=== PATIENT | male | born 1950 | race Caucasian/White ===

== ENCOUNTER → 2016-06-13 | Outpatient (CLI) | payer OTHER ==
[~2016-06-13] MED LIST: ATOR10TA88 PO; LANS30CA12; LIPITOR; LISI-725 PO; OMEP40CA; OXYC-57 PO; PRLSR20 PO; TAMS0.4C38 PO
[2016-06-13 13:19] LABS: ALT/SGPT 35 U/L (12-78); AST/SGOT 25 U/L (15-37); BLOOD UREA NITROGEN 15 mg/dl (7-18); BUN/CREATININE RATIO 15.2 (10-20); CALCIUM 9.4 mg/dl (8.5-10.1); CARBON DIOXIDE 30 mmol/L (21-32); CHLORIDE 100 mmol/L (98-107); CHOLESTEROL 155 mg/dl (0-200); GLUCOSE 96 mg/dl (70-99); SODIUM 137 mmol/L (136-145); TRIGLYCERIDES 118 mg/dl (0-150); VERY LOW DENSITY LIPOPROT CALC 24 mg/dl
[2016-06-13 13:29] LABS: ALB/GLOB RATIO 1.1 (0.9-2); ALKALINE PHOSPHATASE 74 U/L (45-117); HDL CHOLESTEROL 52 mg/dl; LDL CHOLESTEROL CALCULATED 79 mg/dl
== END | disposition home or self-care (01) ==
LOC: C.LABPVFM 07:44
PROVIDERS: ATTEND Family Medicine
DX: E78.4 Other hyperlipidemia (principal); K21.9 Gastro-esophageal reflux disease without esophagitis; I10 Essential (primary) hypertension; Z13.29 Encounter for screening for other suspected endocrine disorder

== ENCOUNTER → 2016-12-13 | Outpatient (CLI) | payer OTHER ==
--- NOTE | 2016-12-13 09:59 | DIAGNOSTIC IMAGING REPORT ---
KUB CLINICAL HISTORY: HYPERTENSION/NAUSEA/ COMPARISON STUDY: No previous studies for comparison. FINDINGS: There is no pathologic bowel dilatation. Degenerative changes are present within the spine. There are no calcifications suspicious for renal calculi. There are several nonspecific pelvic basin calcifications. If there is clinical concern over the presence of a distal ureteral calculus, a CT scan could be obtained in follow-up. IMPRESSION: 1. No renal calculi identified 2. Nonspecific pelvic basin calcifications. Electronically signed by: Santana Durand M.D. 12/13/2016 9:58 AM Dictated Date/Time: 12/13/2016 9:57 AM
[2016-12-13 12:43] LABS: BLOOD UREA NITROGEN 15 mg/dl (7-18); BUN/CREATININE RATIO 11.4 (10-20); CALCIUM 9.8 mg/dl (8.5-10.1); CARBON DIOXIDE 28 mmol/L (21-32); CHLORIDE 100 mmol/L (98-107); GLUCOSE 122 mg/dl (70-99); SODIUM 135 mmol/L (136-145)
[2016-12-13 12:47] LABS: CHOLESTEROL/HDL RATIO 4.2; PROSTATE SPECIFIC ANTIGEN 2.63 ng/ml (0.000-4.000)
== END | disposition home or self-care (01) ==
LOC: C.LABPVFM 09:40
PROVIDERS: ATTEND Nurse Practitioner
DX: I10 Essential (primary) hypertension (principal); R11.0 Nausea; Z12.5 Encounter for screening for malignant neoplasm of prostate; E78.4 Other hyperlipidemia

== ENCOUNTER 2016-12-14 08:43 | Emergency (ER) | payer OTHER ==
[~2016-12-14] VITALS: Ht 177.8 cm; Wt 83.7 kg
[~2016-12-14 08:43] MED LIST changes: -ATOR10TA88 PO; -LISI-725 PO; -OXYC-57 PO; -PRLSR20 PO; -TAMS0.4C38 PO
[2016-12-14 08:47] VITALS: TEMP 36.8; Ht 177.8 cm; Wt 83.7 kg
[2016-12-14] MEDS ORDERED: MoRPHine SULFATE 4 MG/ML 1 ML CARP\\VIAL ONE ×2 (09:12→10:40)
[2016-12-14] MEDS ORDERED: MoRPHine SULFATE 2 MG/ML CARP ONE ×2 (09:12→10:40)
[2016-12-14] MEDS ORDERED: MoRPHine SULFATE 10 MG/ML CARP/VIAL IV PRN (09:15)
[2016-12-14] MEDS ORDERED: SODIUM CHLORIDE 0.9% 1000ML 1,000 ML IV ONE (09:15)
[2016-12-14] MEDS ORDERED: ONDANSETRON INJ 2 MG/ML 2 ML VIAL IV PRN (09:15)
[2016-12-14 09:38] LABS: BASO % 0.1 %; BASO ABS # 0.01 K/uL (0-0.2); COMPLETE YES; HEMATOCRIT 45.6 % (42-52); IG% 0.2 %; LYMPH % 5.4 %; LYMPH ABS # 0.91 K/uL (1.2-3.4); MEAN CELL VOLUME 84.4 fL (80-100); MEAN CORPUSCULAR HEMOGLOBIN 30.4 pg (25-34); MEAN PLATELET VOLUME 10.1 fL (7.4-10.4); MONO % 9.8 %; NEUT % 84.5 %; PLATELET COUNT 263 K/uL (130-400); WHITE BLOOD COUNT 16.99 K/uL (4.8-10.8)
[2016-12-14] MEDS ORDERED: ATOR10TA88 PO (09:40)
[2016-12-14] MEDS ORDERED: PRLSR20 PO (09:40)
[2016-12-14 09:56] LABS: BUN/CREATININE RATIO 10.7 (10-20); CALCIUM 9.9 mg/dl (8.5-10.1); CREATININE 1.4 mg/dl (0.60-1.40); POTASSIUM 3.9 mmol/L (3.5-5.1)
--- NOTE | 2016-12-14 10:02 | EMERGENCY ROOM VISIT NOTE ---
History Report prepared by Marilyn: Abby Nelson Under the Supervision of: Dr. Dakota Emmanuel M.D. First contact with patient: 09:00 Chief Complaint: ABDOMINAL PAIN Stated Complaint: ABD PAIN, HYPERTENSION, NAUSEA History of Present Illness The patient is a 66 year old male who presents to the Emergency Room with complaints of worsening diffuse abdominal pain for the past day. The patient was feeling fine Monday night while watching football. He went to bed and woke up around 1am with abdominal pain. This has been constant and worsening since that time. He is also experiencing nausea and back pain. He rates his pain as a 7/10 in severity. He has had no appetite. He has a history of kidney stones but is unsure if this feels like his previous kidney stones. The patient's last bowel movement was 3 days ago. He used a suppository last night. He was straining this morning to have a bowel movement but was only able to have a very small one. He went to [facility] yesterday and had a negative x-ray. Source of History: patient Onset: yesterday at 1am Position: abdomen Symptom Intensity: 7/10 Timing: constant, worsening Associated Symptoms: + back pain Note: Pt has been constipated. Review of Systems All systems have been listed, reviewed, and are negative other than those previously mentioned. Please see Additional Medical History Sheet. Past Medical & Surgical Medical Problems: (1) Calculus of kidney (2) Diaphragmatic hernia (3) Esophageal reflux (4) Ulcer of esophagus with bleeding Surgical Problems: (1) History of Cameron fundoplication Family History Heart disease Social History Smoking Status: Former Smoker Smokeless Tobacco Use: No Alcohol Use: none Marital Status: Housing Status: lives with significant other Occupation Status: unemployed Current/Historical Medications Scheduled Atorvastatin (Lipitor), 1 TAB PO DAILY Omeprazole (Prilosec), 20 MG PO DAILY Tamsulosin Hcl (Flomax), 0.4 MG PO DAILY Scheduled PRN Oxycodone/Acetaminophen 5MG/325MG (Percocet 5MG/325MG), 1-2 TABLETS PO Q4H PRN for Pain Miscellaneous Medications Lansoprazole (Prevacid) Allergies Coded Allergies: No Known Allergies (Verified , 12/14/16) Physical Exam Vital Signs Date Time Temp Pulse Resp B/P (MAP) Pulse Ox O2 Delivery O2 Flow Rate FiO2 9/20/17 13:55 71 18 165/85 95 Room Air 12/14/16 11:55 74 18 162/90 93 Room Air 12/14/16 08:47 36.8 75 17 207/125 98 Room Air Physical Exam GENERAL: Patient awake, alert, oriented x 3. Patient appears to be in moderate distress. Patient follows commands. Patient appears to mild to moderately dehydrated. Patient does not appear toxic. Patient is well-nourished. SKIN: No erythema, pallor, cyanosis or rash HEENT: Normal head, pupils equal, reactive to light and accommodation. Oral cavity and posterior pharynx appear normal. Mucous membranes are dry. Neck: Without adenopathy, no neck vein distention. LUNGS: Clear to auscultation. No wheezes, no rales, no rhonchi. HEART: No murmurs. No gallops. No rubs ABDOMEN: Minimal bowel sounds, generalized abdominal tenderness. Small sub- umbilical well-healed scar without signs of infection. No masses, no rebound or guarding, no hepatomegaly or splenomegaly. EXTREMITIES: No signs of trauma. No pedal or pretibial edema. No calf or thigh tenderness. NEUROLOGIC: Cranial nerves II-XII within normal limits. No gross motor sensory function deficits. Medical Decision & Procedures ER Provider Diagnostic Interpretation: Radiology results as stated below per my review and radiologist interpretation: ABD/PELVIS IV CONTRAST ONLY CT DOSE: 419.88 mGy.cm HISTORY: Obstruction bowel ob? TECHNIQUE: Multiaxial CT images of the abdomen and pelvis were performed following the use of intravenous contrast. A dose lowering technique was utilized adhering to the principles of ALARA. COMPARISON STUDY: 09/23/2005 FINDINGS: Fixed hernia and diminished in volume from the prior study. Mild bibasilar atelectasis. Liver demonstrates several small hepatic cysts unchanged. Right kidney shows moderate hydronephrosis. Enhancement characteristics are somewhat diminished as compared to the contralateral left kidney. Moderate ureteral distention with moderate periureteral infiltrative change. There is a 5 mm obstructing calculus distal right ureter proximal to the right ureteral vesicle junction. Chronic sigmoid diverticulosis. No evidence for acute diverticulitis. Nonobstructive bowel pattern. Mild reactive irritability of the second third portions of the duodenal sweep most likely secondary to perinephric infiltrative change of the right kidney. IMPRESSION: 1. 5 mm obstructing calculus distal right ureter. 2. Moderate right hydroureteronephrosis with moderate perinephric fat stranding. 3. Mild reactive edematous change of the second/ third portion of duodenal sweep. 4. Chronic sigmoid and to lesser extent ascending colonic diverticulosis. 5. Fixed hiatal hernia. The above report was generated using voice recognition software. It may contain grammatical, syntax or spelling errors. Electronically signed by: Breezy Sharp M.D. 12/14/2016 10:35 AM Dictated Date/Time: 12/14/2016 10:28 AM Laboratory Results 12/14/16 09:15 Red Blood Count 5.40, Mean Corpuscular Volume 84.4, Mean Corpuscular Hemoglobin 30.4, Mean Corpuscular Hemoglobin Concent 36.0, Mean Platelet Volume 10.1, Neutrophils (%) (Auto) 84.5, Lymphocytes (%) (Auto) 5.4, Monocytes (%) (Auto) 9.8, Eosinophils (%) (Auto) 0.0, Basophils (%) (Auto) 0.1, Neutrophils # (Auto) 14.36, Lymphocytes # (Auto) 0.91, Monocytes # (Auto) 1.67, Eosinophils # (Auto) 0.00, Basophils # (Auto) 0.01 12/14/16 09:15 Test 12/14/16 09:15 12/14/16 13:30 White Blood Count 16.99 K/uL (4.8-10.8) Red Blood Count 5.40 M/uL (4.7-6.1) Hemoglobin 16.4 g/dL (14.0-18.0) Hematocrit 45.6 % (42-52) Mean Corpuscular Volume 84.4 fL (80-100) Mean Corpuscular Hemoglobin 30.4 pg (25-34) Mean Corpuscular Hemoglobin Concent 36.0 g/dl (32-36) Platelet Count 263 K/uL (130-400) Mean Platelet Volume 10.1 fL (7.4-10.4) Neutrophils (%) (Auto) 84.5 % Lymphocytes (%) (Auto) 5.4 % Monocytes (%) (Auto) 9.8 % Eosinophils (%) (Auto) 0.0 % Basophils (%) (Auto) 0.1 % Neutrophils # (Auto) 14.36 K/uL (1.4-6.5) Lymphocytes # (Auto) 0.91 K/uL (1.2-3.4) Monocytes # (Auto) 1.67 K/uL (0.11-0.59) Eosinophils # (Auto) 0.00 K/uL (0-0.5) Basophils # (Auto) 0.01 K/uL (0-0.2) RDW Standard Deviation 40.6 fL (36.4-46.3) RDW Coefficient of Variation 13.3 % (11.5-14.5) Immature Granulocyte % (Auto) 0.2 % Immature Granulocyte # (Auto) 0.04 K/uL (0.00-0.02) Anion Gap 8.0 mmol/L (3-11) Est Creatinine Clear Calc Drug Dose 52.1 ml/min Estimated GFR () 59.4 Estimated GFR (Non- 51.3 BUN/Creatinine Ratio 10.7 (10-20) Calcium Level 9.9 mg/dl (8.5-10.1) Total Bilirubin 1.1 mg/dl (0.2-1) Aspartate Amino Transf (AST/SGOT) 26 U/L (15-37) Alanine Aminotransferase (ALT/SGPT) 24 U/L (12-78) Alkaline Phosphatase 82 U/L (45-117) Total Protein 7.9 gm/dl (6.4-8.2) Albumin 3.9 gm/dl (3.4-5.0) Globulin 4.0 gm/dl (2.5-4.0) Albumin/Globulin Ratio 1.0 (0.9-2) Lipase 398 U/L (73-393) Urine Color YELLOW Urine Appearance CLEAR (CLEAR) Urine pH 5.0 (4.5-7.5) Urine Specific [place] > 1.045 (1.000-1.030) Urine Protein NEG (NEG) Urine Glucose (UA) NEG (NEG) Urine Ketones 1+ (NEG) Urine Occult Blood NEG (NEG) Urine Nitrite NEG (NEG) Urine Bilirubin NEG (NEG) Urine Urobilinogen NEG (NEG) Urine Leukocyte Esterase NEG (NEG) Laboratory results as stated above per my review. Medications Administered Medications (Trade) Dose Ordered Sig/Mary Route Start Time Stop Time Status Last Admin Dose Admin Ondansetron HCl (Zofran Inj) 4 mg Q1HWA PRN IV 12/14/16 09:15 01/13/17 09:14 12/14/16 09:24 4 MG Sodium Chloride 1,000 ml @ 1,000 mls/hr Q1H ONCE IV 12/14/16 09:15 12/14/16 10:14 DC 12/14/16 09:25 1,000 MLS/HR Morphine Sulfate (MoRPHine SULFATE INJ) 4 mg STK-MED ONCE .ROUTE 12/14/16 09:12 12/14/16 09:13 DC 12/14/16 09:24 4 MG Morphine Sulfate (MoRPHine SULFATE INJ) 2 mg STK-MED ONCE .ROUTE 12/14/16 09:12 12/14/16 09:13 DC 12/14/16 09:25 2 MG Morphine Sulfate (MoRPHine SULFATE INJ) 4 mg STK-MED ONCE .ROUTE 12/14/16 10:40 12/14/16 10:41 DC 12/14/16 10:44 4 MG Morphine Sulfate (MoRPHine SULFATE INJ) 2 mg STK-MED ONCE .ROUTE 12/14/16 10:40 12/14/16 10:41 DC 12/14/16 10:44 2 MG Al Hydrox/Mg Hydrox/Simethicone (Maalox Max Susp) 30 ml NOW STAT PO 12/14/16 14:09 12/14/16 14:10 DC 12/14/16 14:34 30 ML ECG Indication: abdominal pain Rate (beats per minute): 68 Rhythm: normal sinus Findings: left axis deviation, no ectopy ED Course 0900: Past medical records reviewed. The patient was evaluated in room B10. A complete history and physical examination was performed. 0912: Morphine sulfate 6 mg IV 0915: NSS 1000ml @ 1000 mls/hr IV, Zofran 4 mg IV - PRN 1040: Morphine sulfate 6 mg IV 1152: Upon reevaluation the patient is doing well. His pain is currently a 1/ 10. He will give a urine sample. 1406: I updated the patient. He is doing well but complaining of some indigestion. 1409: Maalox 30 ml PO 1418: I spoke with GEOVANNA Rojas with urology. We discussed the patient' s case. She will follow-up with the patient in the office tomorrow. 1429: I reassessed the patient at this time. He is feeling better and resting comfortably. I discussed the results and treatment plan with the patient. I answered all pertaining questions that he had. He expressed understanding and verbalized agreement. The patient will be discharged home. Medical Decision Differential diagnoses includes bowel obstruction, gastroenteritis, peptic/ gastric ulcer disease, cholelithiasis, cholecystitis, diverticulitis, dehydration. The patient arrives here with abdominal pain similar to what he has experienced in the past with a kidney stone. Multiple labs and imaging were performed. The patient does have a 5 mm distal ureteral stone with hydronephrosis. He also has some edema around the duodenum and a slight elevation of his white count. I believe this is most likely secondary to the inflammation of the kidney. Urinalysis is clear. The patient's pain was controlled with the above medications. The patient felt significantly better prior to discharge. I did discussed care with Holly Marie from urology. The patient will be seen tomorrow. In the meantime he was given a prescription for Flomax and Percocet. The patient was given milk of magnesia here for some indigestion. [place] Drug Monitoring Program Search Results: patient reviewed within database, no issues identified Medication Reconcilliation Current Medication List: was personally reviewed by me Blood Pressure Screening Patient's blood pressure: Elevated blood pressure Blood pressure disposition: Referred to PCP Consults Time Called: 1414 Consulting Physician: GEOVANNA Rojas Returned Call: 1418 I spoke with GEOVANNA Rojas with urology. We discussed the patient's case. She will follow-up with the patient in the office tomorrow. Impression Primary Impression: Renal colic Scribe Attestation The scribe's documentation has been prepared under my direction and personally reviewed by me in its entirety. I confirm that the note above accurately reflects all work, treatment, procedures, and medical decision making performed by me. Departure Information Dispostion Home / Self-Care Prescriptions Oxycodone/Acetaminophen 5MG/325MG (PERCOCET 5MG/325MG) Tab 1-2 TABLETS PO Q4H Y for Pain, #20 TAB Prov: Dakota Emmanuel M.D. 12/14/16 Tamsulosin Hcl (FLOMAX) 0.4 Mg Cap 0.4 MG PO DAILY, #10 CAP Prov: Dakota Emmanuel M.D. 12/14/16 Referrals No Doctor, Assigned (PCP) Forms HOME CARE DOCUMENTATION FORM, IMPORTANT VISIT INFORMATION Patient Instructions My [email or web address] Additional Instructions 1 Flomax daily. 1-2 Percocet every 4 hours as needed for moderate to severe pain. Do not drive or operate machinery while taking Percocet. Drink extra fluids. Follow-up with urology tomorrow.
--- NOTE | 2016-12-14 10:36 | DIAGNOSTIC IMAGING REPORT ---
ABD/PELVIS IV CONTRAST ONLY CT DOSE: 419.88 mGy.cm HISTORY: Obstruction bowel ob? TECHNIQUE: Multiaxial CT images of the abdomen and pelvis were performed following the use of intravenous contrast. A dose lowering technique was utilized adhering to the principles of ALARA. COMPARISON STUDY: 09/23/2005 FINDINGS: Fixed hernia and diminished in volume from the prior study. Mild bibasilar atelectasis. Liver demonstrates several small hepatic cysts unchanged. Right kidney shows moderate hydronephrosis. Enhancement characteristics are somewhat diminished as compared to the contralateral left kidney. Moderate ureteral distention with moderate periureteral infiltrative change. There is a 5 mm obstructing calculus distal right ureter proximal to the right ureteral vesicle junction. Chronic sigmoid diverticulosis. No evidence for acute diverticulitis. Nonobstructive bowel pattern. Mild reactive irritability of the second third portions of the duodenal sweep most likely secondary to perinephric infiltrative change of the right kidney. IMPRESSION: 1. 5 mm obstructing calculus distal right ureter. 2. Moderate right hydroureteronephrosis with moderate perinephric fat stranding. 3. Mild reactive edematous change of the second/ third portion of duodenal sweep. 4. Chronic sigmoid and to lesser extent ascending colonic diverticulosis. 5. Fixed hiatal hernia. The above report was generated using voice recognition software. It may contain grammatical, syntax or spelling errors. Electronically signed by: Breezy Sharp M.D. 12/14/2016 10:35 AM Dictated Date/Time: 12/14/2016 10:28 AM
[2016-12-14 13:41] LABS: URINE APPEARANCE CLEAR (CLEAR); URINE BILIRUBIN NEG (NEG); URINE COLOR YELLOW; URINE NITRITE NEG (NEG); URINE SPECIFIC GRAVITY > 1.045 (1.000-1.030); UROBILINOGEN NEG (NEG); ZZUR CULT IF INDIC CLEAN CATCH NO
[2016-12-14 13:42] LABS: MANUAL MICROSCOPIC REQUIRED? NO; REVIEW REQ? NO
[2016-12-14] MEDS ORDERED: ALUMINUM/MAGNESIUM/SIMETH (MAALOX MAX) 30 ML UDC PO STA (14:09)
[2016-12-14] MEDS ORDERED: TAMS0.4C38 PO (14:25)
[2016-12-14] MEDS ORDERED: OXYC-57 PO (14:25)
[2016-12-14 15:24] VITALS: BP 146/87; PULSE 67; O2SAT 96
[2016-12-15] MEDS ORDERED: LISI-725 PO (14:56)
== END 2016-12-14 15:28 | disposition home or self-care (01) ==
LOC: C.EDB 08:45
DX: N13.2 Hydronephrosis with renal and ureteral calculous obstruction (principal); K21.9 Gastro-esophageal reflux disease without esophagitis; Z87.19 Personal history of other diseases of the digestive system; Z87.442 Personal history of urinary calculi; Z98.890 Other specified postprocedural states; Z87.891 Personal history of nicotine dependence; Z79.899 Other long term (current) drug therapy; Z82.49 Family history of ischemic heart disease and other diseases of the circulatory system

== ENCOUNTER 2016-12-15 13:46 | Observation (INO) | payer OTHER ==
[2016-12-14 23:34] VITALS: BP 162/85; PULSE 72; TEMP 37; O2SAT 96
[~2016-12-15] VITALS: Ht 180.3 cm; Wt 81.4 kg
[~2016-12-15 13:46] MED LIST changes: +ATOR10TA88 PO; -LIPITOR; -OMEP40CA; +OXYC-57 PO; +PRLSR20 PO; +TAMS0.4C38 PO
[2016-12-15] MEDS ORDERED: OXYCODONE/ACETAMINOPHEN 7.5-325 TAB PO PRN (14:00)
[2016-12-15] MEDS ORDERED: HYDROmorphone INJ 1 MG/ML SYR IV PRN (14:00)
[2016-12-15] MEDS ORDERED: KETOROLAC TROMETHAMINE 15 MG/ML VIAL IV PRN (14:00)
[2016-12-15] MEDS ORDERED: FAMOTIDINE IV INJ 20 MG in DEXTROSE 5% 100ML 100 ML IV PRN (14:00)
[2016-12-15] MEDS ORDERED: MAGNESIUM HYDROXIDE SUSP 30 ML UDC PO PRN (14:00)
[2016-12-15] MEDS ORDERED: BISACODYL 10 MG SUPP PR PRN (14:00)
[2016-12-15] MEDS ORDERED: IV FLUIDS COMPLETED PRN (14:30)
[2016-12-15 14:40] VITALS: BP 157/75; PULSE 76; TEMP 37; O2SAT 95; Ht 180.3 cm; Wt 81.4 kg
[2016-12-15] MEDS ORDERED: LISI-725 PO (14:56)
--- NOTE | 2016-12-15 15:02 | History and Physical ---
History Date of Service: Dec 15, 2016. Chief Complaint: right low back pain Primary Care Physician: Violet Boyce. Pt seen a urologist before?: Yes (Holly [place]) If yes, why?: right ureteral stone History of Present Illness 66 yo male seen by myself in the office today for right low back pain that started 2 days ago. The pt was seen in the ED for this issue yesterday, and CT scan showed a distal 5mm right ureteral stone. Pt reported severe pain 10/10 to me this afternoon with nausea, dry heaving, and indigestion. Denied dysuria or hematuria. He also reports he has not eaten solid food for 3 days, and is constipated. He has a hx of passing stones "decades" ago on his own without intervention. The pt is also noted to have a hx of HTN. He reports stopping medication for this in September as he was trying to "wean myself off all my meds." Imaging CT (12-14-16 in the ED) Laboratory Labs pending. See ED visit from yesterday. Problem List Medical Problems: (1) Renal colic Status: Acute Past History Past Medical History: diverticulosis, GERD, hypertension, kidney stones Past Surgical History: other (hiatal hernia repair) Family History Heart disease Social History Smoking: non-smoker Alcohol: occasional Drug use: none Marital status: Housing status: lives with family Occupation status: retired Immunizations History of Influenza Vaccine: Unknown Influenza Vaccine Date: Sep 23, 2004 History of Tetanus Vaccine?: Yes Tetanus Immunization Date: Sep 23, 1998 History of Pneumococcal: Unknown History of Hepatitis B Vaccine: No History of MDRO No Allergies Coded Allergies: No Known Allergies (Verified , 12/14/16) Medications Home Medications: Home Meds and Scripts Medications Dose Route/Sig Max Daily Dose Days Date Category Percocet 5MG/325MG (Oxycodone/Acetaminophen) Tab 1-2 Tablets PO Q4H PRN 12/14/16 Rx Flomax (Tamsulosin Hcl) 0.4 Mg Cap 0.4 Mg PO DAILY 12/14/16 Rx Prilosec (Omeprazole) 20 Mg Capcr 20 Mg PO DAILY 12/14/16 Reported Lipitor (Atorvastatin Calcium) 10 Mg Tab 1 Tab PO DAILY 30 12/14/16 Reported Prevacid (Lansoprazole) 30 Mg Capcr 09/22/05 Reported Inpatient Medications: Current Inpatient Medications Medications (Trade) Dose Ordered Sig/Mary Route Start Time Stop Time Status Last Admin Dose Admin Docusate Sodium (coLACE CAP) 100 mg BID PO 12/15/16 21:00 01/14/17 20:59 Hydromorphone HCl (Dilaudid Inj) 1 mg Q2H PRN IV 12/15/16 14:00 12/29/16 13:59 Ketorolac Tromethamine (Toradol Inj) 15 mg Q6H PRN IV 12/15/16 14:00 12/20/16 13:59 Ondansetron HCl (Zofran Inj) 4 mg Q6H PRN IV 12/15/16 14:00 01/14/17 13:59 Oxycodone/ Acetaminophen (Percocet 7.5-325MG Tab) Hold Tylenol if given Q4H PRN PO 12/15/16 14:00 12/29/16 13:59 Ciprofloxacin/ Dextrose (Cipro / D5W) 400 mg PREOP IV 12/16/16 06:00 12/16/16 16:00 Magnesium Hydroxide (Milk Of Magnesia Susp) 30 ml Q6H PRN PO 12/15/16 14:00 01/14/17 13:59 Bisacodyl (Dulcolax Supp) 10 mg BID PRN TX 12/15/16 14:00 01/14/17 13:59 Sodium Chloride 1,000 ml @ 125 mls/hr Q8H IV 12/15/16 14:00 01/14/17 13:59 Tamsulosin HCl (Flomax Cap) 0.4 mg HS PO 12/15/16 21:00 01/14/17 20:59 Atorvastatin Calcium (Lipitor Tab) 10 mg DAILY PO 12/16/16 09:00 01/15/17 08:59 Pantoprazole Sodium (Protonix Tab) 40 mg DAILY PO 12/16/16 09:00 01/15/17 08:59 Famotidine 20 mg/ Dextrose 102 ml @ 200 mls/hr Q12H PRN IV 12/15/16 14:00 01/14/17 13:59 Miscellaneous (Iv Fluids Completed) 1 ea PRN PRN N/A 12/15/16 14:30 12/15/17 14:29 Review of Systems Review of Systems Constitutional: + chills, No fever Eyes: No double vision Neurological: No dizzy Endocrine: No excessive thirst Gastrointestinal: + nausea, + vomiting, + constipation, No abdominal pain Cardiovascular: No chest pain Respiratory: No shortness of breath Skin: No rash Musculoskeletal: + back pain (right low back pain ) Male : + kidney stones, No painful urination, No blood in urine Physical Exam Physical Exam: General Appearance: + moderate distress Eyes: bilateral eyes normal inspection ENT: hearing grossly normal Neck: no JVD Respiratory/Chest: lungs clear, normal breath sounds, no respiratory distress, no accessory muscle use Cardiovascular: regular rate, rhythm, no JVD Gastrointestinal: Abdomen: normal abdomen, pertinent finding (no hepatosplenomegaly; minimal bowel sounds noted) Extremities: normal inspection Neurologic/Psychiatric: alert, normal mood/affect, oriented x 3 Skin: normal color Assessment & Plan Assessment & Plan Treatment Planned: ureteroscopy w/ laser, cystoscopy w/ stent A/P: 5mm distal right ureteral stone Will plan to admit the pt for pain control and supportive management with IVF and Flomax. Will send a UC&S. Strain all urine. Will obtain labs and KUB today. Consult hospitalist for untreated HTN. Will plan for surgical management of stone tomorrow with a cysto and right URS/ LL if pain and stone persists. Risks and benefits of the procedure discussed with the pt. All questions answered. Consent obtained. Will obtain a pre-op chest x-ray and EKG. Hopeful for d/c home after procedure tomorrow.
[2016-12-15 15:38] LABS: HEMATOCRIT 43.4 % (42-52); MEAN CELL VOLUME 85.6 fL (80-100); MEAN CORPUSCULAR HEMOGLOBIN 29.4 pg (25-34); MEAN PLATELET VOLUME 10.3 fL (7.4-10.4); PLATELET COUNT 221 K/uL (130-400); RED BLOOD COUNT 5.07 M/uL (4.7-6.1); WHITE BLOOD COUNT 19.84 K/uL (4.8-10.8)
[2016-12-15] MEDS ORDERED: HydrALAZINE HCL 20 MG/ML VIAL IV. PRN (15:45)
[2016-12-15 16:01] LABS: MEAN CORPUSCULAR HGB CONC 34.3 g/dl (32-36)
[2016-12-15 16:08] LABS: BLOOD UREA NITROGEN 17 mg/dl (7-18); BUN/CREATININE RATIO 11.9 (10-20); CALCIUM 9.9 mg/dl (8.5-10.1); CARBON DIOXIDE 30 mmol/L (21-32); CHLORIDE 96 mmol/L (98-107); GLUCOSE 145 mg/dl (70-99); SODIUM 131 mmol/L (136-145)
[2016-12-15 16:19] VITALS: BP 175/79; PULSE 88; TEMP 36.8; O2SAT 95
--- NOTE | 2016-12-15 16:21 | Medical Consult ---
Consultation Date of Consultation: Dec 15, 2016. Attending Physician: Antelmo George MD, Urology Reason for Consultation: Medical management of HTN History of Present Illness This is a 66 y/o male with a history of HTN, HLD, and GERD who presents with right flank pain and nausea. Pt presented to ED yesterday and found to have 5 mm distal right ureteral stone on CT. Patient was admitted by the urology service for a trial of passage and possible stent tomorrow. Medicine was consulted for management of the patient's HTN. The patient currently denies any flank or abdominal pain. He states his nausea has resolved now although he was dry heaving earlier. He denies any urinary symptoms. The patient denies fevers, chills, sweats, chest pain, palpitations, claudication, cough, wheezing , shortness of breath, nausea, vomiting, abdominal pain, dysuria, hematuria, urinary retention, paralysis, weakness, numbness and tingling. Past Medical/Surgical History Medical Problems: (1) Renal colic Status: Acute HTN HLD GERD Family History Heart disease Myocardial infarction Ovarian cancer Social History Smoking Status: Former Smoker (quit 2013) Smokeless Tobacco Use: No Alcohol Use: occasionally (very rarely) Drug Use: none Marital Status: Housing Status: lives with significant other Occupation Status: retired Allergies Coded Allergies: No Known Allergies (Verified , 12/14/16) Current Inpatient Medications Current Inpatient Medications Medications (Trade) Dose Ordered Sig/Mary Route Start Time Stop Time Status Last Admin Dose Admin Docusate Sodium (coLACE CAP) 100 mg BID PO 12/15/16 21:00 01/14/17 20:59 Hydromorphone HCl (Dilaudid Inj) 1 mg Q2H PRN IV 12/15/16 14:00 12/29/16 13:59 Ketorolac Tromethamine (Toradol Inj) 15 mg Q6H PRN IV 12/15/16 14:00 12/20/16 13:59 Ondansetron HCl (Zofran Inj) 4 mg Q6H PRN IV 12/15/16 14:00 01/14/17 13:59 Oxycodone/ Acetaminophen (Percocet 7.5-325MG Tab) Hold Tylenol if given Q4H PRN PO 12/15/16 14:00 12/29/16 13:59 Ciprofloxacin/ Dextrose (Cipro / D5W) 400 mg PREOP IV 12/16/16 06:00 12/16/16 16:00 Magnesium Hydroxide (Milk Of Magnesia Susp) 30 ml Q6H PRN PO 12/15/16 14:00 01/14/17 13:59 Bisacodyl (Dulcolax Supp) 10 mg BID PRN OK 12/15/16 14:00 01/14/17 13:59 Sodium Chloride 1,000 ml @ 125 mls/hr Q8H IV 12/15/16 14:00 01/14/17 13:59 Tamsulosin HCl (Flomax Cap) 0.4 mg HS PO 12/15/16 21:00 01/14/17 20:59 Atorvastatin Calcium (Lipitor Tab) 10 mg DAILY PO 12/16/16 09:00 01/15/17 08:59 Pantoprazole Sodium (Protonix Tab) 40 mg DAILY PO 12/16/16 09:00 01/15/17 08:59 Famotidine 20 mg/ Dextrose 102 ml @ 200 mls/hr Q12H PRN IV 12/15/16 14:00 01/14/17 13:59 Miscellaneous (Iv Fluids Completed) 1 ea PRN PRN N/A 12/15/16 14:30 12/15/17 14:29 Hydralazine HCl (HydrALAZINE INJ) 10 mg Q4 PRN IV. 12/15/16 15:45 01/14/17 15:44 Review of Systems See HPI for pertinent positives and negatives. All other systems reviewed and negative. Physical Exam Date Time Temp Pulse Resp B/P (MAP) Pulse Ox O2 Delivery O2 Flow Rate FiO2 12/15/16 14:40 37.0 76 16 157/75 95 Room Air General appearance: Well-developed, well-nourished, no apparent distress Head: Normocephalic, atraumatic Eyes: Normal inspection, PERRL, EOMI ENT: Normal ENT inspection, hearing grossly normal, pharynx normal Neck: Supple, no JVD, trachea midline Respiratory/Chest: Lungs clear to auscultation, normal breath sounds, no respiratory distress Cardiovascular: Regular rate & rhythm, no gallop, no murmur Abdomen/GI: +Right flank mildly TTP. Normal bowel sounds, soft Extremities/Musculoskeletal: Normal inspection, no calf tenderness, no pedal edema Neurological/Psych: Alert, normal mood/affect, oriented x 3 Skin: Normal color, warm/dry, no rash Laboratory Results Last 24 Hours Test 12/15/16 15:17 White Blood Count 19.84 K/uL Red Blood Count 5.07 M/uL Hemoglobin 14.9 g/dL Hematocrit 43.4 % Mean Corpuscular Volume 85.6 fL Mean Corpuscular Hemoglobin 29.4 pg Mean Corpuscular Hemoglobin Concent 34.3 g/dl RDW Standard Deviation 42.2 fL RDW Coefficient of Variation 13.5 % Platelet Count 221 K/uL Mean Platelet Volume 10.3 fL Assessment & Plan 66 y/o male with a history of HTN, HLD, and GERD who presents with right flank pain and nausea, CT revealed 5 mm distal right ureteral stone. Medicine consulted for medical management of HTN. R ureteral stone -Admitted to med/surg -NSS at 125 cc/hr -Pain control and bowel regimen per urology -Zofran 4 mg IV q6h prn nausea -Flomax 0.4 mg PO hs -NPO after midnight for possible stent -Strain urine HTN-stable -Hold lisinopril for now -Cover with hydralazine 10 mg IV q4h prn SBP >160 HLD -Continue Lipitor 10 mg PO qd GERD -Protonix 40 mg PO qd Thank you for this consultation. We will continue to follow.
[2016-12-15] MEDS: SODIUM CHLORIDE 0.45% 1000ML 1,000 ML IV SCH ×2 (16:24→21:56)
--- NOTE | 2016-12-15 16:24 | DIAGNOSTIC IMAGING REPORT ---
CHEST 2 VIEWS ROUTINE CLINICAL HISTORY: Preoperative chest COMPARISON STUDY: No previous studies for comparison. FINDINGS: The cardiac and mediastinal contours are normal. There is no evidence of focal pulmonary consolidation. There is no evidence of failure. No pleural effusions are visualized.[ There is a retrocardiac opacity consistent with a hiatal hernia. There is minor basilar atelectatic change. IMPRESSION: No active disease in the chest. Electronically signed by: Santana Durand M.D. 12/15/2016 4:23 PM Dictated Date/Time: 12/15/2016 4:22 PM
--- NOTE | 2016-12-15 16:27 | DIAGNOSTIC IMAGING REPORT ---
KUB CLINICAL HISTORY: RIGHT URETERAL STONE COMPARISON STUDY: 12/13/2016 , CT scan dated 12/14/2016 FINDINGS: The renal shadows are partially secured by overlying bowel gas and fecal material. There is no pathologic bowel dilatation. There is a 3.5 mm right pelvic basin calcification which may correspond to the recently described distal right ureteral calculus. IMPRESSION: 3.5 mm right pelvic basin calcification, likely corresponding to the recently described distal right ureteral calculus. Electronically signed by: Santana Durand M.D. 12/15/2016 4:26 PM Dictated Date/Time: 12/15/2016 4:24 PM
[2016-12-15] MEDS: ONDANSETRON INJ 2 MG/ML 2 ML VIAL IV PRN (18:41)
[2016-12-15] MEDS ORDERED: TAMSULOSIN HCL 0.4 MG CAP PO SCH (21:00)
[2016-12-15] MEDS: DOCUSATE SODIUM 100 MG CAP PO SCH (21:55)
[2016-12-15 23:34] VITALS: BP 162/85; PULSE 72; TEMP 37; O2SAT 96
[2016-12-16] MEDS: ONDANSETRON INJ 2 MG/ML 2 ML VIAL IV PRN (03:18)
[2016-12-16] MEDS: SODIUM CHLORIDE 0.45% 1000ML 1,000 ML IV SCH (05:51)
[2016-12-16] MEDS ORDERED: CIPROFLOXACIN 400MG / 200ML D5W IV SCH (06:00)
[2016-12-16 06:10] LABS: BASO % 0.1 %; BASO ABS # 0.02 K/uL (0-0.2); COMPLETE YES; EOS % 0.1 %; IG% 0.1 %; LYMPH % 8.1 %; MEAN CELL VOLUME 85.7 fL (80-100); MEAN CORPUSCULAR HEMOGLOBIN 29.9 pg (25-34); MEAN CORPUSCULAR HGB CONC 34.9 g/dl (32-36); MEAN PLATELET VOLUME 10.1 fL (7.4-10.4); MONO % 13.5 %; NEUT % 78.1 %; PLATELET COUNT 212 K/uL (130-400); RED BLOOD COUNT 4.55 M/uL (4.7-6.1); WHITE BLOOD COUNT 13.51 K/uL (4.8-10.8)
[2016-12-16 06:43] LABS: BUN/CREATININE RATIO 11.6 (10-20); CREATININE 0.92 mg/dl (0.60-1.40); POTASSIUM 3.6 mmol/L (3.5-5.1)
--- NOTE | 2016-12-16 07:32 | DIAGNOSTIC IMAGING REPORT ---
KUB CLINICAL HISTORY: RIGHT URETERAL STONE COMPARISON STUDY: 12/15/2016 FINDINGS: There are mildly prominent gas-filled small bowel loops, likely representing a mild ileus. There are no transition zones to indicate a high-grade bowel obstruction. The previously identified right pelvic basin calcification is no longer visualized. This may indicate a passed calculus. Correlation with clinical symptoms is recommended. IMPRESSION: 1. The previously identified 3.5 mm right pelvic basin calcification is no longer visualized. This may indicate a passed calculus. Electronically signed by: Santana Durand M.D. 12/16/2016 7:30 AM Dictated Date/Time: 12/16/2016 7:29 AM
[2016-12-16 08:43] VITALS: BP 170/93; PULSE 77; TEMP 36.9; O2SAT 92
[2016-12-16 08:44] VITALS: BP 164/90; PULSE 92; O2SAT 94
--- NOTE | 2016-12-16 08:52 | Progress Note ---
Subjective Date of Service: Dec 16, 2016. Subjective Pt evaluation today including: conversation w/ patient, physical exam, chart review, lab review Voiding: no voiding problems 66 year old male admitted yesterday with significant right sided pain due to right distal ureteral stone. He is feeling much better today. Denies pain, fever, chills, nausea or vomiting. KUB from today no longer shows the stone in right distal ureter. Reviewed and compared images from yesterday with pt. Has been straining all urine but states he is unaware of passing the stone. Problem List Medical Problems: (1) Renal colic Status: Acute Review of Systems Constitutional: No fever, No chills ENT: No hearing loss Respiratory: No cough, No shortness of breath Cardiac: No chest pain Abdomen: No pain, No nausea, No vomiting, No diarrhea Male : + urinary frequency, No dysuria, No incontinence, No slowing stream, No hematuria Heme: No abnormal bleeding/bruising Endo: No fatigue Skin: No rash Objective Vital Signs Date Time Temp Pulse Resp B/P (MAP) Pulse Ox O2 Delivery O2 Flow Rate FiO2 12/15/16 23:34 37.0 72 16 162/85 (110) 96 Room Air 12/15/16 19:48 Room Air 12/15/16 16:30 Room Air 12/15/16 16:19 36.8 88 18 175/79 (111) 95 Room Air 12/15/16 14:40 37.0 76 16 157/75 95 Room Air Physical Exam General Appearance: WD/WN, no apparent distress ENT: hearing grossly normal Respiratory/Chest: lungs clear, normal breath sounds, no respiratory distress, no accessory muscle use Cardiovascular: regular rate, rhythm Abdomen: non tender, soft Extremities: normal range of motion, non-tender, normal inspection, no pedal edema, no calf tenderness Neurologic/Psychiatric: alert, normal mood/affect, oriented x 3 Laboratory Results Last 24 Hours Test 12/15/16 15:17 12/15/16 16:22 12/16/16 05:31 White Blood Count 19.84 K/uL 13.51 K/uL Red Blood Count 5.07 M/uL 4.55 M/uL Hemoglobin 14.9 g/dL 13.6 g/dL Hematocrit 43.4 % 39.0 % Mean Corpuscular Volume 85.6 fL 85.7 fL Mean Corpuscular Hemoglobin 29.4 pg 29.9 pg Mean Corpuscular Hemoglobin Concent 34.3 g/dl 34.9 g/dl RDW Standard Deviation 42.2 fL 41.4 fL RDW Coefficient of Variation 13.5 % 13.3 % Platelet Count 221 K/uL 212 K/uL Mean Platelet Volume 10.3 fL 10.1 fL Sodium Level 131 mmol/L 131 mmol/L Potassium Level mmol/L 3.7 mmol/L 3.6 mmol/L Chloride Level 96 mmol/L 94 mmol/L Carbon Dioxide Level 30 mmol/L 30 mmol/L Anion Gap 5.0 mmol/L 7.0 mmol/L Blood Urea Nitrogen 17 mg/dl 11 mg/dl Creatinine 1.40 mg/dl 0.92 mg/dl Est Creatinine Clear Calc Drug Dose 53.8 ml/min 81.8 ml/min Estimated GFR () 59.4 98.7 Estimated GFR (Non- 51.3 85.2 BUN/Creatinine Ratio 11.9 11.6 Random Glucose 145 mg/dl 108 mg/dl Calcium Level 9.9 mg/dl 9.0 mg/dl Neutrophils (%) (Auto) 78.1 % Lymphocytes (%) (Auto) 8.1 % Monocytes (%) (Auto) 13.5 % Eosinophils (%) (Auto) 0.1 % Basophils (%) (Auto) 0.1 % Neutrophils # (Auto) 10.53 K/uL Lymphocytes # (Auto) 1.10 K/uL Monocytes # (Auto) 1.82 K/uL Eosinophils # (Auto) 0.02 K/uL Basophils # (Auto) 0.02 K/uL Immature Granulocyte % (Auto) 0.1 % Immature Granulocyte # (Auto) 0.02 K/uL Assessment and Plan Right ureteral stone Appears this has passed based on KUB images. Pt is pain free. Denies nausea and vomiting. Given his lack of pain and inability to see stone on today's KUB that was seen yesterday will cancel surgery, feed pt and send him home this am. He is aware if the severe pain should return he should go to the ER. Will have him follow up in our office in 6 months with a KUB prior to appt. Our office will call to arrange. Appreciate hospitalist input for untreated HTN.
--- NOTE | 2016-12-16 08:59 | Discharge Instructions ---
Discharge Instructions Date of Service Dec 16, 2016. Admission Reason for Admission: Right Renal Colic Discharge Discharge Diagnosis / Problem: Right Renal Colic Discharge Goals Goal(s): Decrease discomfort Activity Recommendations Activity Limitations: resume your previous activity . Instructions / Follow-Up Instructions / Follow-Up Our office will call to set up appointment for 6 months with an Xray to be done prior to the appointment. Current Hospital Diet Hospital Diet(s): Regular Diet Discharge Diet Recommended Diet: Regular Diet Pending Studies Studies pending at discharge: yes List of pending studies: Urine culture Laboratory Results Lipid Panel Test 12/13/16 09:45 Range/Units Triglycerides Level 109 0-150 mg/dl Cholesterol Level 257 H 0-200 mg/dl HDL Cholesterol 61 mg/dl Cholesterol/HDL Ratio 4.2 LDL Cholesterol, Calculated 174 mg/dl Medical Emergencies . Who to Call and When: Medical Emergencies: If at any time you feel your situation is an emergency, please call 911 immediately. . Non-Emergent Contact Non-Emergency issues call your: Primary Care Provider Call Non-Emergent contact if: temperature is above 101.5, your pain is worsening . . "Provider Documentation" section prepared by Tami Saunders. . VTE Core Measure Inpt VTE Proph given/why not?: Treatment not indicated [place] Drug Monitoring Program Search Results: no issues identified
[2016-12-16] MEDS ORDERED: ATORVASTATIN 10 MG TAB PO SCH (09:00)
[2016-12-16] MEDS ORDERED: PANTOprazole SOD 40 MG TAB PO SCH (09:00)
[2016-12-16] MEDS: DOCUSATE SODIUM 100 MG CAP PO SCH (09:44)
[2016-12-16 09:48] VITALS: BP 164/90; PULSE 92; TEMP 36.9; O2SAT 94
--- NOTE | 2016-12-16 10:11 | Hospitalist Progress Note ---
Hospitalist Progress Note Date of Service Dec 16, 2016. (Milagros Langley ., DANIKA) Subjective Pt evaluation today including: conversation w/ patient, physical exam, lab review, review of studies, review of inpatient medication list Voiding: no voiding problems Patient feeling well this AM. Eating and drinking OK. Denies any pain. KUB this AM does not show evidence of stone. Strained urine but unaware of passing stone. Patient denies any fever, chills, sweats, lightheadedness, dizziness, vision changes, CP, palpitations, edema, SOB, wheezing, cough, abdominal pain, nausea, vomiting, diarrhea, urinary symptoms, melena, numbness/tingling, weakness, muscle/joint pain, anxiety/depression, active bleeding, or new skin discoloration/changes. (Milagros Langley, ZANDERC) Medications Current Inpatient Medications Medications (Trade) Dose Ordered Sig/Mary Route Start Time Stop Time Status Last Admin Dose Admin Docusate Sodium (coLACE CAP) 100 mg BID PO 12/15/16 21:00 01/14/17 20:59 12/16/16 09:44 100 MG Hydromorphone HCl (Dilaudid Inj) 1 mg Q2H PRN IV 12/15/16 14:00 12/29/16 13:59 Ketorolac Tromethamine (Toradol Inj) 15 mg Q6H PRN IV 12/15/16 14:00 12/20/16 13:59 Ondansetron HCl (Zofran Inj) 4 mg Q6H PRN IV 12/15/16 14:00 01/14/17 13:59 12/16/16 03:18 4 MG Oxycodone/ Acetaminophen (Percocet 7.5-325MG Tab) Hold Tylenol if given Q4H PRN PO 12/15/16 14:00 12/29/16 13:59 12/15/16 18:44 2 TAB Ciprofloxacin/ Dextrose (Cipro / D5W) 400 mg PREOP IV 12/16/16 06:00 12/16/16 16:00 Magnesium Hydroxide (Milk Of Magnesia Susp) 30 ml Q6H PRN PO 12/15/16 14:00 01/14/17 13:59 12/15/16 16:24 30 ML Bisacodyl (Dulcolax Supp) 10 mg BID PRN OH 12/15/16 14:00 01/14/17 13:59 12/15/16 18:43 10 MG Sodium Chloride 1,000 ml @ 125 mls/hr Q8H IV 12/15/16 14:00 01/14/17 13:59 12/16/16 05:51 125 MLS/HR Tamsulosin HCl (Flomax Cap) 0.4 mg HS PO 12/15/16 21:00 01/14/17 20:59 12/15/16 21:55 0.4 MG Atorvastatin Calcium (Lipitor Tab) 10 mg DAILY PO 12/16/16 09:00 01/15/17 08:59 12/16/16 09:43 10 MG Pantoprazole Sodium (Protonix Tab) 40 mg DAILY PO 12/16/16 09:00 01/15/17 08:59 12/16/16 09:44 40 MG Famotidine 20 mg/ Dextrose 102 ml @ 200 mls/hr Q12H PRN IV 12/15/16 14:00 01/14/17 13:59 Miscellaneous (Iv Fluids Completed) 1 ea PRN PRN N/A 12/15/16 14:30 12/15/17 14:29 Hydralazine HCl (HydrALAZINE INJ) 10 mg Q4 PRN IV. 12/15/16 15:45 01/14/17 15:44 12/16/16 08:05 10 MG (Milagros Langley, PA-C) Objective Vital Signs Date Time Temp Pulse Resp B/P (MAP) Pulse Ox O2 Delivery O2 Flow Rate FiO2 12/16/16 08:44 92 16 164/90 (114) 94 Room Air 12/16/16 08:43 36.9 77 17 170/93 (118) 92 Room Air 12/15/16 23:34 37.0 72 16 162/85 (110) 96 Room Air 12/15/16 19:48 Room Air 12/15/16 16:30 Room Air 12/15/16 16:19 36.8 88 18 175/79 (111) 95 Room Air 12/15/16 14:40 37.0 76 16 157/75 95 Room Air (Milagros Langley PA-C) Physical Exam General Appearance: no apparent distress Eyes: normal inspection, PERRL ENT: hearing grossly normal Neck: supple Respiratory/Chest: lungs clear, no respiratory distress, no accessory muscle use Cardiovascular: regular rate, rhythm Abdomen: normal bowel sounds, non tender, soft Extremities: no pedal edema, no calf tenderness Neurologic/Psychiatric: alert, normal mood/affect, oriented x 3 (Milargos Langley, DANIKA) Laboratory Results Last 24 Hours Test 12/15/16 15:17 12/15/16 16:22 12/16/16 05:31 White Blood Count 19.84 K/uL 13.51 K/uL Red Blood Count 5.07 M/uL 4.55 M/uL Hemoglobin 14.9 g/dL 13.6 g/dL Hematocrit 43.4 % 39.0 % Mean Corpuscular Volume 85.6 fL 85.7 fL Mean Corpuscular Hemoglobin 29.4 pg 29.9 pg Mean Corpuscular Hemoglobin Concent 34.3 g/dl 34.9 g/dl RDW Standard Deviation 42.2 fL 41.4 fL RDW Coefficient of Variation 13.5 % 13.3 % Platelet Count 221 K/uL 212 K/uL Mean Platelet Volume 10.3 fL 10.1 fL Sodium Level 131 mmol/L 131 mmol/L Potassium Level mmol/L 3.7 mmol/L 3.6 mmol/L Chloride Level 96 mmol/L 94 mmol/L Carbon Dioxide Level 30 mmol/L 30 mmol/L Anion Gap 5.0 mmol/L 7.0 mmol/L Blood Urea Nitrogen 17 mg/dl 11 mg/dl Creatinine 1.40 mg/dl 0.92 mg/dl Est Creatinine Clear Calc Drug Dose 53.8 ml/min 81.8 ml/min Estimated GFR () 59.4 98.7 Estimated GFR (Non- 51.3 85.2 BUN/Creatinine Ratio 11.9 11.6 Random Glucose 145 mg/dl 108 mg/dl Calcium Level 9.9 mg/dl 9.0 mg/dl Neutrophils (%) (Auto) 78.1 % Lymphocytes (%) (Auto) 8.1 % Monocytes (%) (Auto) 13.5 % Eosinophils (%) (Auto) 0.1 % Basophils (%) (Auto) 0.1 % Neutrophils # (Auto) 10.53 K/uL Lymphocytes # (Auto) 1.10 K/uL Monocytes # (Auto) 1.82 K/uL Eosinophils # (Auto) 0.02 K/uL Basophils # (Auto) 0.02 K/uL Immature Granulocyte % (Auto) 0.1 % Immature Granulocyte # (Auto) 0.02 K/uL (Milagros Langley PA-C) Assessment and Plan 66 y/o male with a history of HTN, HLD, and GERD who presents with right flank pain and nausea, CT revealed 5 mm distal right ureteral stone. Medicine consulted for medical management of HTN. R ureteral stone: - Admitted to med/surg by urology services - NSS at 125 cc/hr - Pain control and bowel regimen per urology - Zofran 4 mg IV q6h PRN nausea - Flomax 0.4 mg PO HS - Strain urine - Leukocytosis- IMPROVING - Repeat KUB on 12/16 reports no evidence of stone HTN: - Hold Lisinopril- resume at discharge - Hydralazine 10 mg IV q4h PRN - Discussed elevated pressures, which could be secondary situational/pain or poorly controlled HTN. Recommend logging BPs 2x daily and follow-up w/ PCP HLD: Continue Lipitor 10 mg PO qd GERD: Protonix 40 mg PO qd Code Status: LEVEL I, FULL Dispo: Discharge to home as per primary team. (Milagros Langley, ZANDERC) d/w Teofilo Langley PAC pt discharged prior to my seeing appears appropriate care as above (Guillaume Victoria, D.Sandrine.)
--- NOTE | 2017-01-02 14:32 | DISCHARGE SUMMARY ---
ATTENDING: Dr. Rodriges. ADMITTING DIAGNOSIS: Right distal ureteral stone with intractable colic. DISCHARGE DIAGNOSIS: Same. PROCEDURES: No procedures over course of admission. COMPLICATIONS: None. BRIEF HISTORY: Mr. Stewart is a 66-year-old male with a right distal ureteral stone seen in our office with intractable colic. He is being brought into the Emergency Room for pain control and management of his colicky pain. Please see H&P for further details. HOSPITAL COURSE: The patient was admitted to the hospital and passed the stone within 24 hours. On day of admission he no longer had any pain and a KUB the next day showed disappearance of his right distal ureteral stone consistent with passage. The patient felt well, was considered stable for discharge home over the course of time. No significant abnormalities in his labs or vital signs over the course of admission. Mild reactive leukocytosis improved and creatinine after stone passage. Please see progress notes for further details. FOLLOWUP CARE: The patient will be discharged home. DISCHARGE INSTRUCTIONS: Please see discharge instruction sheet and medication list for further details. Outpatient appointment to be confirmed for followup of stones.
== END 2016-12-16 10:58 | disposition home or self-care (01) ==
LOC: PREINTOOBSV 14:02 → C.MSN 14:20
PROVIDERS: ADMIT Urology; ATTEND Urology
DX: N20.1 Calculus of ureter (principal); I10 Essential (primary) hypertension; E78.5 Hyperlipidemia, unspecified; K21.9 Gastro-esophageal reflux disease without esophagitis; Z87.891 Personal history of nicotine dependence; Z82.49 Family history of ischemic heart disease and other diseases of the circulatory system; Z79.899 Other long term (current) drug therapy; Z53.8 Procedure and treatment not carried out for other reasons

== ENCOUNTER → 2016-12-26 | Outpatient (CLI) | payer OTHER ==
[~2016-12-26] MED LIST changes: -ATOR10TA88 PO; +LISI-725 PO; -TAMS0.4C38 PO
== END | disposition home or self-care (01) ==
LOC: C.LABPVFM 10:02
PROVIDERS: ATTEND Nurse Practitioner
DX: R73.09 Other abnormal glucose (principal)

== ENCOUNTER → 2017-05-31 | Outpatient (CLI) | payer OTHER ==
[2017-05-31 13:14] LABS: ALT/SGPT 42 U/L (12-78); AST/SGOT 27 U/L (15-37); BLOOD UREA NITROGEN 16 mg/dl (7-18); CALCIUM 10.1 mg/dl (8.5-10.1); CARBON DIOXIDE 28 mmol/L (21-32); CREATININE 1.04 mg/dl (0.60-1.40); GLUCOSE 87 mg/dl (70-99); SODIUM 132 mmol/L (136-145)
[2017-05-31 13:17] LABS: ALKALINE PHOSPHATASE 80 U/L (45-117); CHOLESTEROL 176 mg/dl (0-200); LDL CHOLESTEROL CALCULATED 88 mg/dl; TOTAL PROTEIN 7.8 gm/dl (6.4-8.2)
== END | disposition home or self-care (01) ==
LOC: C.LABPVFM 11:06
PROVIDERS: ATTEND Nurse Practitioner Family
DX: E78.4 Other hyperlipidemia (principal); I10 Essential (primary) hypertension